=== PATIENT | female | born 1970 | race Caucasian/White ===

== ENCOUNTER → 2018-06-04 | Outpatient (CLI) | payer BC, OTHER | LOC: BRMIMAGING 14:58 | PROVIDERS: ATTEND Physician Assistant | DX: Z12.31 Encounter for screening mammogram for malignant neoplasm of breast (principal); N63.10 Unspecified lump in the right breast, unspecified quadrant ==

== ENCOUNTER → 2018-06-28 | Outpatient (CLI) | payer BC | LOC: BRMIMAGING 08:45 | PROVIDERS: ATTEND Physician Assistant | DX: Z03.89 Encounter for observation for other suspected diseases and conditions ruled out (principal) ==